=== PATIENT | male | born 1985 | race Caucasian/White ===

== ENCOUNTER 2023-08-12 01:25 | Emergency (ER) | payer OTHER, SELFPAY ==
[2023-08-12 01:28] VITALS: BP 176/98; PULSE 97; RESP 18; TEMP 37.2; BMI 32.5
--- NOTE | 2023-08-12 01:31 | XR_ITS ---
The [address] [address] Patient Name: RODOLFO ESCAMILLA MRN: [id number] date: 1985 Sex: M Assigned Patient Location: ER Current Patient Location: Accession/Order Number: [id number] Exam Date: 08/12/2023 01:35 Report Date: 08/12/2023 02:03 At the request of: DONYA TIJERINA Procedure: XR foot RT min 3V XR foot RT min 3V, 08/12/2023 12:35 AM POPCORN ATTENDANT: History: blunt trauma. . Comparison: None. Technique: 3 views right foot Findings/Impression: There is a questionable acute nondisplaced fracture through the base of the third metatarsal, best visualized on the oblique radiograph. There is prominent soft tissue swelling throughout the dorsum of the forefoot. Electronically authenticated by: DIVINA TEE Date: 08/12/2023 02:03
--- NOTE | 2023-08-12 02:00 | ED_ITS ---
HPI - Extremity Injury (Lower) General Chief Complaint: Extremity Injury, Lower Stated Complaint: LE INJURY Time Seen by Provider: 08/12/23 01:35 Source: patient Mode of arrival: walk-in Limitations: no limitations History of Present Illness HPI Narrative: Around 2pm the patient was struck in the right foot by a softball that had been hit by a batter. The patient was pitching and the ball was struck directly back at him, striking him in the mid right foot. He immediately had pain and as the evening progressed past midnight the pain and swelling worsened. He got his to bring him to the ED for evaluation. No other injuries. Related Data Previous Rx's Medication Instructions Recorded oxycodone-acetaminophen 5 mg-325 1 tab PO Q6H PRN pain 4 days #14 08/12/23 mg tablet (Percocet) tabs Allergies Allergy/AdvReac Type Severity Reaction Status Date / Time No Known Drug Allergies Allergy Verified 08/12/23 01:30 PFSH PFSH Social History Smoking status: Never smoker Exam Narrative Exam Narrative: Nurses notes and vital signs reviewed and patient is not hypoxic. afebrile General: Well-appearing and in no apparent distress. Skin: Warm, dry, no pallor noted. Cardiovascular: normal peripheral perfusion. Respiratory: No accessory muscle use or respiratory distress. Musculoskeletal: Tenderness, swelling and ecchymosis noted to the mid right foot. Toes of the right foot with normal ROM, no calf or popliteal tenderness, no lower extremity edema/swelling Neurological: A&O x4. No cranial nerve dysfunction observed. No truncal ataxia. Moves all extremities. Sensation intact. Psychiatric: Cooperative and interactive. Normal mood and affect. Constitutional Vital Signs, click to edit/add: Last Vital Signs Temp 98.9 F 08/12/23 01:28 Pulse 97 H 08/12/23 01:28 Resp 18 08/12/23 01:28 BP 176/98 H 08/12/23 01:28 O2 Del Method Room Air 08/12/23 01:28 Course Vital Signs Vital signs: Vital Signs Temperature 98.9 F 08/12/23 01:28 Pulse Rate 97 H 08/12/23 01:28 Respiratory Rate 18 08/12/23 01:28 Blood Pressure 176/98 H 08/12/23 01:28 Oxygen Delivery Method Room Air 03/03/24 01:28 Temperature 98.9 F 08/12/23 01:28 Pulse Rate 97 H 08/12/23 01:28 Respiratory Rate 18 08/12/23 01:28 Blood Pressure 176/98 H 08/12/23 01:28 Oxygen Delivery Method Room Air 08/12/23 01:28 MDM - Extremity Injury (Lower) MDM Narrative Medical decision making narrative: X-rays of the foot reveal acute close fractures of the right second and third metatarsals. The patient was informed of results. Right foot was placed in a CAM boot and the patient was given crutches and instructed on crutch use to limit weightbearing of the right lower extremity. Patient was discharged home after being given a dose of [place]. He was prescribed additional [place] for pain use at home. We discussed nonweightbearing on the right lower extremity/foot, application of ice as needed to prevent swelling, compression through the use of Lavon wrap or cam boot and elevation of the lower extremity when inactive. He was referred to local podiatry group, Dr. Coombs, for follow-up. Imaging Data xr foot: My impression: fx bases 2nd and 3rd MTs Radiologist's impression: Patient Name: RODOLFO ESCAMILLA MRN: [id number] date: 1985 Sex: M Assigned Patient Location: ER Current Patient Location: Accession/Order Number: [id number] Exam Date: 08/12/2023 01:35 Report Date: 08/12/2023 02:03 At the request of: DONYA TIJERINA Procedure: XR foot RT min 3V XR foot RT min 3V, 08/12/2023 12:35 AM SEWER LINE REPAIRER: History: blunt trauma. . Comparison: None. Technique: 3 views right foot Findings/Impression: There is a questionable acute nondisplaced fracture through the base of the third metatarsal, best visualized on the oblique radiograph. There is prominent soft tissue swelling throughout the dorsum of the forefoot. Electronically authenticated by: DIVINA TEE Date: 08/12/2023 02:03 Discharge Plan Discharge Chief Complaint: Extremity Injury, Lower Clinical Impression: Closed displaced fracture of third metatarsal bone of right foot, Closed displaced fracture of second metatarsal bone of right foot Patient Disposition: Home, Self-Care Time of Disposition Decision: 02:13 Prescriptions / Home Meds: New oxycodone-acetaminophen [Percocet] 5-325 mg tablet 1 tab PO Q6H PRN (Reason: pain) 4 Days Qty: 14 0RF Rx Instructions: ICD 10 - S92 foot fracture Instructions: Crutch Instructions (ED), Foot Fracture in Adults (ED), P.R.I.C.E. Treatment (ED) Referrals: Rolan Coombs DPM [Physician] - As soon as possible Discharge Date/Time: 08/12/23 02:28 Stand Alone Forms: Portal Instructions
[2023-08-12] MEDS: OXYCODONE HCL/ACETAMINOPHEN 5MG/325MG 1 TAB PO (02:13)
== END 2023-08-12 02:28 | disposition home or self-care (01) ==
PROVIDERS: Emergency Provider Emergency Medicine; PCP Nurse Practitioner Family
DX: S92.321A Displaced fracture of second metatarsal bone, right foot, initial encounter for closed fracture (principal); S92.331A Displaced fracture of third metatarsal bone, right foot, initial encounter for closed fracture; W21.07XA Struck by softball, initial encounter; Y93.64 Activity, baseball
CPT/HCPCS: 73630; 99284

== ENCOUNTER 2023-08-16 15:01 | Outpatient (OUT) | payer OTHER, SELFPAY ==
--- NOTE | 2023-08-16 | XR_ITS ---
The [address] [address] Patient Name: RODOLFO ESCAMILLA MRN: [id number] date: 1985 Sex: M Assigned Patient Location: Current Patient Location: Accession/Order Number: [id number] Exam Date: 08/16/2023 15:01 Report Date: 08/18/2023 06:59 At the request of: KEAGAN AGUILAR Procedure: XR foot KYLE min 3V PROCEDURE: XR foot KYLE min 3V HISTORY: BILATERAL FOOT PAIN ; dorsal right midfoot pain after struck by softball COMPARISON: None. FINDINGS: BONES:Suspect nondisplaced oblique fracture involving base of third metatarsal. SOFT TISSUES:No visible soft tissue swelling. EFFUSION:None visible. OTHER: Negative. XR/XR foot KYLE min 3V IMPRESSION: 1. Suspect nondisplaced fracture involving the base of the right third metatarsal. Consider CT examination of the foot for further clarification is needed. 2. Unremarkable left foot. Electronically authenticated by: XENA JUAREZ Date: 08/18/2023 06:59
--- OUTSIDE RECORDS SUMMARY | 2023-08-16 15:06 | XMS_ITS | CCD ---
Author Name Unknown Address [address] [place] [address] Organization [facility] Care Team Providers Care Dental Technologist Name Role Phone AMMON CARRENO Attending Unavailable AMMON CARRENO Consulting Unavailable AMMON CARRENO Admitting Unavailable Problems Active Problems Problem Classification Problem Date Documented Da te Episodic/Chronic Unclassified (2 sources) CONTACT W/AND (SUSP) EXPOS COVID-19; Translations: [CONTACT W/AND (SUSP) EXPOS COVID-19] Onset: 03-23-2021 Unclassified (1 source) COUGH, UNSPECIFIED; Translations: [COUGH, UNSPECIFIED] Onset: 03-23-2021 Viral infection (1 source) COVID-19; Translations: [COVID-19] Onset: 03-23-2021 Past or Other Problems Problem Classification Problem Date Documented Da te Episodic/Chronic Unclassified (1 source) CONTACT W/AND (SUSP) EXPOS COVID-19; Translations: [CONTACT W/AND (SUSP) EXPOS COVID-19] Onset: 03-18-2021 Results Test Name Value Interpretation Reference Range Facil ity Covid-19 PCR (CVDTBH)on SARS-CoV-2 (COVID-19) RNA JAMIE+probe Ql (Unsp spec) Detected Critically abnormal NOT DETECTED The [facility] Comment on above: Result Comment: This test is not yet approved or cleared by the [place] FDA. When there are no FDA-approved or cleared tests available, and other criteria are met, FDA can make tests available under an emergency access mechanism called an Emergency Use Authorization (EUA). The EUA for this test is supported by the [place] of Health and Human Service's (HHS's) declaration that circumstances exist to justify the emergency use of in vitro diagnostics for the detection and/or diagnosis of the virus that causes COVID-19. This EUA will remain in effect (meaning this test can be used) for the duration of the COVID-19 declaration justifying emergency of IVDs, unless it is terminated or revoked by FDA (after which the test may no longer be used). Performed By: #### [facility] #### [facility] [id number] Neeru Ramirez Physician Referralon 021 Physician Referral [phone] [id number] 06#[id number]:127 Normal [facility] Encounters Encounter Date Encounter Type Care Provider Facility Start: 03-18-2021 End: 03-18-2021 ambulatory [facility] Facility: Payers Date Payer Category Payer Unknown [id number] 1960 Private Health Insurance [id number] Summary Purpose Family History No Family History Records FoundNo Family History Records Found Advance Directives No Advanced Directives Records FoundNo Advanced Directives Records Found Additional Source Comments (unrecognized sect ion and content) No Status Records FoundNo Status Records Found INFORMATION SOURCE (unrecogn ized section and content) DATE CREATED AUTHOR 03/23/2021 [facility] DATE CREATED AUTHOR AUTHOR'S ORGANIZ ATION 03/24/2021 [facility] FOR RECORDS PERTAINING TO PATIENTS WHO ARE OR HAVE BEEN ENROLLED IN A CHEMICAL DEPENDENCY/SUBSTANCEABUSE PROGRAM, SOME INFORMATION MAY BE OMITTED. This clinical summary was aggregated from multiple sources. Caution should be exercised in using it in the provision of clinical care. This summary normalizes information from multiple sources, and as a consequence, information in this document may materially change the coding, format and clinical context of patient data. In addition, data may be omitted in some cases. CLINICAL DECISIONS SHOULD BE BASED ON THE PRIMARY CLINICAL RECORDS. [employer] provides no warranty or guarantee of the accuracy or completeness of information in this document.
== END 2023-08-16 15:02 | disposition home or self-care (01) ==
LOC: EC 15:01
PROVIDERS: PCP Nurse Practitioner Family; Visit Provider Physician Assistant
DX: M79.671 Pain in right foot (principal); M79.672 Pain in left foot
CPT/HCPCS: 73630

== ENCOUNTER 2023-08-22 14:38 | Outpatient (OUT) | payer OTHER, SELFPAY ==
--- NOTE | 2023-08-22 14:43 | CT_ITS ---
[address] [address] Patient Name: RODOLFO ESCAMILLA MRN: [id number] date: 1985 Sex: M Assigned Patient Location: CT Current Patient Location: Accession/Order Number: [id number] Exam Date: 08/22/2023 14:45 Report Date: 08/24/2023 06:56 At the request of: KEAGAN AGUILAR Procedure: CT foot RT wo con EXAMINATION: CT foot RT wo con HISTORY: Right Lisfranc Fracture, Dislocation COMPARISON: XR foot bilateral 08/16/2023, XR foot right 08/12/2023 TECHNIQUE: Multi-planar CT images were created without and/or with IV contrast according to examination type. Dose reduction techniques were achieved by using automated exposure control and/or adjustment of mA and/or kV according to patient size and/or use of iterative reconstruction technique. FINDINGS: BONES: Comminuted nondisplaced fractures involving the base of the third metatarsal with intra-articular extension. SOFT TISSUES: Mild dorsal soft tissue swelling. No hematoma. EFFUSION: None visible. OTHER: Negative. CT/CT foot RT wo con IMPRESSION: 1. Base of third metatarsal comminuted fractures with intra-articular extension. No involvement of the adjacent bones. 2. Mild dorsal soft tissue swelling. Electronically authenticated by: XENA JUAREZ Date: 08/24/2023 06:56
== END 2023-08-22 14:39 | disposition home or self-care (01) ==
LOC: CT 14:38
PROVIDERS: PCP Nurse Practitioner Family; Visit Provider Physician Assistant
DX: S92.334D Nondisplaced fracture of third metatarsal bone, right foot, subsequent encounter for fracture with routine healing (principal)
CPT/HCPCS: 73700

== ENCOUNTER 2023-09-25 13:04 | Outpatient (OUT) | payer OTHER, SELFPAY ==
--- NOTE | 2023-09-25 | XR_ITS ---
The [address] [address] Patient Name: RODOLFO ESCAMILLA MRN: [id number] date: 1985 Sex: M Assigned Patient Location: Current Patient Location: Accession/Order Number: [id number] Exam Date: 09/25/2023 13:10 Report Date: 09/25/2023 16:00 At the request of: BLAYNE WEAVER Procedure: XR foot RT min 3V PROCEDURE: XR foot RT min 3V COMPARISON: 08/12/2023 HISTORY: RIGHT FOOT PAIN FINDINGS: BONES:Increased sclerosis and contour deformity along the base of the third metatarsal consistent with a stable healing fracture. No new fracture or dislocation. SOFT TISSUES:Negative. No visible soft tissue swelling. EFFUSION:None visible. OTHER: Negative. XR/XR foot RT min 3V IMPRESSION: Stable healing fracture base of the third metatarsal Electronically authenticated by: WINNIE LEON Date: 09/25/2023 16:00
== END 2023-09-25 13:05 | disposition home or self-care (01) ==
LOC: EC 13:04
PROVIDERS: PCP Nurse Practitioner Family; Visit Provider Podiatrist Foot & Ankle Surgery
DX: M79.671 Pain in right foot (principal); S92.334D Nondisplaced fracture of third metatarsal bone, right foot, subsequent encounter for fracture with routine healing
CPT/HCPCS: 73630

== ENCOUNTER 2023-11-06 13:06 | Outpatient (OUT) | payer OTHER, SELFPAY ==
--- NOTE | 2023-11-06 | XR_ITS ---
The [address] [address] Patient Name: RODOLFO ESCAMILLA MRN: [id number] date: 1985 Sex: M Assigned Patient Location: Current Patient Location: Accession/Order Number: [id number] Exam Date: 11/06/2023 13:06 Report Date: 11/07/2023 06:40 At the request of: BLAYNE WEAVER Procedure: XR foot RT min 3V PROCEDURE: XR foot RT min 3V HISTORY: RIGHT FOOT PAIN COMPARISON: XR foot right 09/25/2023 FINDINGS: BONES:Slight increased trabecular density involving base of third metatarsal suggesting ongoing bone healing. No appreciable abnormal alignment. SOFT TISSUES:No visible soft tissue swelling. EFFUSION:None visible. OTHER: Negative. XR/XR foot RT min 3V IMPRESSION: 1. Suspect ongoing bone healing and normal alignments involving base of third metatarsal fracture. Electronically authenticated by: XENA JUAREZ Date: 11/07/2023 06:40
== END 2023-11-06 13:07 | disposition home or self-care (01) ==
LOC: EC 13:06
PROVIDERS: PCP Nurse Practitioner Family; Visit Provider Podiatrist Foot & Ankle Surgery
DX: M79.671 Pain in right foot (principal); S92.334D Nondisplaced fracture of third metatarsal bone, right foot, subsequent encounter for fracture with routine healing
CPT/HCPCS: 73630

== ENCOUNTER 2024-01-14 13:24 | Emergency (ER) | payer OTHER, SELFPAY ==
[2024-01-14 13:28] VITALS: BP 128/89; PULSE 71; TEMP 36.6; O2SAT 98; BMI 31.7
--- NOTE | 2024-01-14 13:31 | XR_ITS ---
The [address] [address] Patient Name: RODOLFO ESCAMILLA MRN: [id number] date: 1985 Sex: M Assigned Patient Location: ER Current Patient Location: ED.MAIN Accession/Order Number: [id number] Exam Date: 01/14/2024 13:38 Report Date: 01/14/2024 14:17 At the request of: RIOS RESENDEZ Procedure: XR ankle LT min 3V PROCEDURE: XR ankle LT min 3V HISTORY: left ankle injury COMPARISON: None. FINDINGS: BONES:No fracture, acute abnormality, or significant arthropathy. SOFT TISSUES:Lateral soft tissue swelling. EFFUSION:None visible. OTHER: Negative. XR/XR ankle LT min 3V IMPRESSION: 1. Prominent lateral swelling suggesting soft tissue injury. 2. No acute bone abnormality. Electronically authenticated by: XENA JUAREZ Date: 01/14/2024 14:17
--- NOTE | 2024-01-14 13:32 | ED_ITS ---
HPI HPI - Extremity Injury (Lower) General Chief Complaint: Extremity Injury, Lower Stated Complaint: LOWER LET EXTREMITY PAIN Time Seen by Provider: 01/14/24 13:27 Source: patient Mode of arrival: walk-in Limitations: no limitations History of Present Illness HPI Narrative: Patient is a 38-year-old male who presents to the emergency department for the evaluation of an injury to the left ankle. He states he stepped incorrectly in his driveway and rolled his left ankle. He did sustain an abrasion to the right knee but states it is not bothering him and he is not concerned about it. He denies any other associated injuries. He is able to walk gingerly on the left foot. No medications taken prior to arrival. Related Data Home Medications ?Medication ?Instructions ?Recorded ?Confirmed No Known Home Medications 01/14/24 01/14/24 Previous Rx's ?Medication ?Instructions ?Recorded ketorolac 10 mg tablet 10 mg PO TID PRN pain #10 tabs 01/14/24 Allergies Allergy/AdvReac Type Severity Reaction Status Date / Time No Known Drug Allergies Allergy Verified 08/12/23 01:30 Opioid HPI Opioid Management Most Recent Pain and Opioid Data: Last Pain Scale 5 01/14/24 13:33 Review of Systems ROS Constitutional Denies: fever or chills Ears, nose, mouth, and throat Denies: throat pain or nasal congestion Respiratory Denies: shortness of breath Gastrointestinal Denies: nausea or vomiting Musculoskeletal Reports: extremity pain, extremity swelling and joint pain; Denies: back pain or neck pain Integumentary/Breast Denies: rash Neurological Denies: headache Hematologic/Lymphatic Denies: easy bruising or easy bleeding PFSH PFS Social History Smoking status: Never smoker Exam Narrative Exam Narrative: Gen.: Awake, alert, in no distress Head: Normocephalic, atraumatic ENT: Moist mucous membranes Respiratory: No respiratory distress Extremities: Moves extremities equally, superficial abrasion to the anterior right knee with no tenderness or joint effusion. Left lateral ankle is edematous and tender. No medial or posterior tenderness. No tenderness of the left tibia or knee. No tenderness of the left fifth metatarsal. 2+ left DP pulse. Normal flexion extension of the toes Psych: Normal mood and affect Neuro: No focal neuro deficit Skin: Warm, dry Constitutional Vital Signs, click to edit/add: Last Vital Signs Temp 97.8 F 01/14/24 13:28 Pulse 71 01/14/24 13:28 Resp 98 H 01/14/24 13:28 BP 128/89 01/14/24 13:28 Pulse Ox 98 01/14/24 13:28 Course Vital Signs Vital signs: Vital Signs Temperature 97.8 F 01/14/24 13:28 Pulse Rate 71 01/14/24 13:28 Respiratory Rate 98 H 01/14/24 13:28 Blood Pressure 128/89 01/14/24 13:28 Pulse Oximetry 98 01/14/24 13:28 Temperature 97.8 F 01/14/24 13:28 Pulse Rate 71 01/14/24 13:28 Respiratory Rate 98 H 01/14/24 13:28 Blood Pressure 128/89 01/14/24 13:28 Pulse Oximetry 98 01/14/24 13:28 MDM - Extremity Injury (Lower) MDM Narrative Medical decision making narrative: Patient was offered a tetanus update, he declined. X-rays of the left ankle with no evidence of fracture or dislocation. Patient given bacitracin to dress the right knee. Lavon wrap, Aircast applied to the left ankle. [place] and Toradol given in the ER. He has crutches at home. Patient is neurovascularly intact pre and post hardware application. Rest, ice, elevate. Referral to podiatry for continued issues. Return to the ER if symptoms change or worsen SUPERVISED APC VISIT, PHYSICIAN ATTESTATION: Based on the medical record the care appears appropriate. ? Medical Records Attestation: I reviewed the patient's medical records. Imaging Data XR ankle: Attestation: I have reviewed the pertinent imaging results. Discharge Plan Discharge Stand Alone Forms: Portal Instructions Chief Complaint: Extremity Injury, Lower Clinical Impression: Left ankle sprain, Abrasion of knee, right Patient Disposition: Home, Self-Care Time of Disposition Decision: 14:08 Condition: Good Prescriptions / Home Meds: New ketorolac 10 mg tablet 10 mg PO TID PRN (Reason: pain) Qty: 10 0RF No Action No Known Home Medications Print Language: [place] Instructions: Ankle Sprain (ED), Abrasion (ED) Referrals: AMMON FRAIRE [Primary Care Provider] - 1 week Rolan Coombs DPM [Physician] - As needed
[2024-01-14 14:35] VITALS: BP 132/86; PULSE 72; O2SAT 98
== END 2024-01-14 14:38 | disposition home or self-care (01) ==
PROVIDERS: Emergency Provider Student in an Organized Health Care Education/Training Program; PCP Nurse Practitioner Family
DX: S93.402A Sprain of unspecified ligament of left ankle, initial encounter (principal); S80.211A Abrasion, right knee, initial encounter; X50.1XXA Overexertion from prolonged static or awkward postures, initial encounter
CPT/HCPCS: 73610; 99284

== ENCOUNTER 2024-01-22 10:06 | Outpatient (OUT) | payer OTHER, SELFPAY ==
--- NOTE | 2024-01-22 | XR_ITS ---
The [address] [address] Patient Name: RODOLFO ESCAMILLA MRN: [id number] date: 1985 Sex: M Assigned Patient Location: Current Patient Location: Accession/Order Number: [id number] Exam Date: 01/22/2024 10:08 Report Date: 01/24/2024 06:13 At the request of: BLAYNE WEAVER Procedure: XR ankle LT min 3V PROCEDURE: XR foot LT min 3V, XR ankle LT min 3V HISTORY: LEFT FOOT PAIN COMPARISON: XR foot bilateral 08/16/2023, XR ankle left 01/14/2024 FINDINGS: BONES:No fracture, acute abnormality, or significant arthropathy. SOFT TISSUES:Lateral soft tissue swelling. EFFUSION:None visible. OTHER: Negative. XR/XR ankle LT min 3V IMPRESSION: 1. Lateral swelling, but less then previously seen. 2. No acute bone abnormality. Electronically authenticated by: XENA JUAREZ Date: 01/24/2024 06:13
--- NOTE | 2024-01-22 | XR_ITS ---
The [address] [address] Patient Name: RODOLFO ESCAMILLA MRN: [id number] date: 1985 Sex: M Assigned Patient Location: Current Patient Location: Accession/Order Number: [id number] Exam Date: 01/22/2024 10:08 Report Date: 01/24/2024 06:13 At the request of: BLAYNE WEAVER Procedure: XR foot LT min 3V PROCEDURE: XR foot LT min 3V, XR ankle LT min 3V HISTORY: LEFT FOOT PAIN COMPARISON: XR foot bilateral 08/16/2023, XR ankle left 01/14/2024 FINDINGS: BONES:No fracture, acute abnormality, or significant arthropathy. SOFT TISSUES:Lateral soft tissue swelling. EFFUSION:None visible. OTHER: Negative. XR/XR foot LT min 3V IMPRESSION: 1. Lateral swelling, but less then previously seen. 2. No acute bone abnormality. Electronically authenticated by: XENA JUAREZ Date: 01/24/2024 06:13
--- OUTSIDE RECORDS SUMMARY | 2024-01-22 10:23 | XMS_ITS | CCD ---
Author Organization [facility] Care Team Providers Care Truck Assembler Name Role Phone AMMON CARRENO Attending Unavailable [...] spec) Detected Critically abnormal NOT DETECTED The [facility] Comment on above: Result Comment: This test is not yet approved or cleared by the [place] FDA. When there are no FDA-approved or cleared tests available, and other criteria are met, FDA can make tests available under an emergency access mechanism called an Emergency Use Authorization (EUA). The EUA for this test is supported by the [place] of Health and Human Service's (HHS's) declaration [...] longer be used). Performed By: #### C [facility] #### [facility] [id number] Neeru Ramirez Physician Referralon 021 Physician Referral [phone] [id number] 06#[id number]:[id number] Normal [facility] Encounters Encounter Date Encounter Type Care Provider Facility Start: 03-18-2021 End: 03-18-2021 ambulatory [facility] Facility: Payers Date Payer Category Payer Unknown [id number] 1960 Private Health Insurance [id number] Summary Purpose Family History No Family History Records FoundNo Family History Records Found Advance Directives No Advanced Directives Records FoundNo Advanced Directives Records Found Additional Source Comments (unrecognized sect ion and content) No Status Records FoundNo Status Records Found INFORMATION SOURCE (unrecogn ized section and content) DATE CREATED AUTHOR 03/23/[address] [facility] DATE CREATED AUTHOR AUTHOR'S ORGANIZ ATION 03/24/2021 [facility] FOR RECORDS PERTAINING TO PATIENTS WHO [...] BE BASED ON THE PRIMARY CLINICAL RECORDS. [employer] provides no warranty or guarantee of the accuracy or completeness of information in this document.
== END 2024-01-22 10:07 | disposition home or self-care (01) ==
LOC: EC 10:06
PROVIDERS: PCP Nurse Practitioner Family; Visit Provider Podiatrist Foot & Ankle Surgery
DX: M25.572 Pain in left ankle and joints of left foot (principal); M25.475 Effusion, left foot
CPT/HCPCS: 73610; 73630

== ENCOUNTER 2024-02-13 07:27 | Outpatient (RCR) | payer OTHER, SELFPAY | END 2024-02-22 12:55 | disposition home or self-care (01) | LOC: PT 07:27 | PROVIDERS: PCP Nurse Practitioner Family; Visit Provider Podiatrist Foot & Ankle Surgery | DX: S93.492D Sprain of other ligament of left ankle, subsequent encounter (principal) | CPT/HCPCS: 97110; 97112; 97140; 97161 ==

== ENCOUNTER 2024-12-05 00:15 | Emergency (ER) | payer OTHER, SELFPAY ==
--- OUTSIDE RECORDS SUMMARY | 2024-12-05 00:25 | XMS_ITS | CCD ---
Author Organization [facility] Care Team Providers Care Oil Well Pumper Name Role Phone AMMON CARRENO Attending Unavailable AMMON CARRENO Consulting Unavailable AMMON CARRENO Admitting Unavailable Peter PUTNAM Attending Unavailable Allergies Allergy Classification Reported Allergen(s) Allergy Type Date of Onset Reaction(s) Facility (1 source) No Known Medication Allergies; Translations: [No Known Medication Allergies] Propensity to adverse reactions (disorder) [facility] Repository Problems Active Problems Problem Classification Problem Date [...] ity Covid-19 PCR (CVDTBH)on SARS-CoV-2 (COVID-19) RNA JMAIE+probe Ql (Unsp spec) Detected Critically abnormal NOT DETECTED [facility] Comment on above: Result Comment: This test is not yet abran roved or cleared by the [place] FDA. When there are no FDA-approved or cleared tests available, and other criteria are met, FDA can make tests available under an emergency access mechanism called an Emergency Use Authorization (EUA). The EUA for this test is supported by the [place] of Health and Human Service's (HHS's) declaration [...] longer be used). Performed By: #### [facility] #### [facility] [address] [id number] [address] Neeru Ramirez Encounters Encounter Date Encounter Type Care Provider Facility Start: 02-22-2024 End: 02-22-2024 ambulatory Peter SURPRISE Facility:[facility] Start: 03-18-2021 End: 03-18-2021 ambulatory AMMON WAI Facility: Payers Date Payer Category Payer Unknown [id number] 1985 Unknown [id number] 1960 Private Health Insurance [id number] Summary Purpose Family History No Family History Records FoundNo Family History Records Found Advance Directives No Advanced Directives Records FoundNo Advanced Directives Records Found Additional Source Comments (unrecognized sect ion and content) No Status Records FoundNo Status Records Found INFORMATION SOURCE (unrecogn ized section and content) DATE CREATED AUTHOR 03/24/2021 [facility] DATE CREATED AUTHOR AUTHOR'S ORGANIZ ATION 02/24/2024 [facility] FOR RECORDS PERTAINING TO PATIENTS WHO [...] BE BASED ON THE PRIMARY CLINICAL RECORDS. [facility] [employer] provides no warranty or guarantee of the accuracy or completeness of information in this document.
[2024-12-05 00:27] VITALS: BP 164/95; PULSE 60; TEMP 36.8; O2SAT 98; BMI 33.2
--- NOTE | 2024-12-05 01:04 | ED.EAR1 ---
HPI - Ear Problem General Chief complaint: Ear Stated complaint: HEADACHE, EAR PAIN Time Seen by Provider: 12/05/24 00:38 Source: patient Mode of arrival: walk-in History of Present Illness HPI Narrative: This 39-year-old male, nondiabetic, presents for evaluation of right sided ear pain for the past 3 days. He denies that he has been swimming. He states the pain is throbbing in nature and radiates into his head and jaw. He denies any dizziness or change in his hearing. He denies any drainage from the ear. He has not had a fever or nasal congestion. He does not have any dental pain or dental disease. He has been using Tylenol and Motrin that helped the pain but only briefly and then it rebounds. He denies that he uses Q-tips or put anything into his ear. Related Data Home Medications ?Medication ?Instructions ?Recorded ?Confirmed No Known Home Medications 01/14/24 01/14/24 Previous Rx's ?Medication ?Instructions ?Recorded ketorolac 10 mg tablet 10 mg PO TID PRN pain #10 tabs 01/14/24 Allergies Allergy/AdvReac Type Severity Reaction Status Date / Time No Known Drug Allergies Allergy Verified 12/05/24 00:35 Review of Systems ROS Status of ROS 10 or more systems reviewed and unremarkable except as noted in history and below PFSH FOR[facility] Social History Smoking status: Never smoker Little interest or pleasure in doing things: not at all Feeling down, depressed, or hopeless: not at all Exam Narrative Exam Narrative: Vital signs and Nursing Notes reviewed: Patient is afebrile with a normal pulse, blood pressure is elevated 164/95, he is not hypoxic with pulse ox of 98% on room air General: Awake, alert, oriented, nontoxic but uncomfortable appearing adult male holding his right ear, no respiratory distress HEENT: Normocephalic atraumatic, mucous membranes are moist and pink, eyes are clear, normal conjunctiva, vision is grossly intact, posterior pharynx is normal in appearance. Dentition are in good repair. The right tympanic membrane is erythematous and bulging with a dark fluid behind the membrane and erythema in the external ear canal without notable exudate. There is mild tenderness over the mastoid and in the anterior aspect of the mandible. Patient does not have any difficulty opening closing his mouth. There is no swelling of the tongue, uvula or pharyngeal soft tissues. Posterior pharynx is normal in appearance. Neck: Supple, no meningeal signs, no anterior or posterior cervical lymphadenopathy Chest: Lungs are clear to auscultation with good air entry, there is no wheezing rhonchi or rales appreciated no accessory muscle use, patient is speaking in complete sentences-no chest wall tenderness to palpation CVS: Regular rate and rhythm S1-S2, no murmurs rubs or gallops, pulses are brisk and equal bilaterally Skin: Normal in appearance without rash,pallor, petechiae or purpura Neuro: No focal deficits Constitutional Vital Signs, click to edit/add: Last Vital Signs Temp 98.2 F 12/05/24 00:27 Pulse 60 12/05/24 00:27 Resp 14 12/05/24 00:27 BP 164/95 H 12/05/24 00:27 Pulse Ox 98 12/05/24 00:27 O2 Del Method Room Air 12/05/24 00:27 Course Vital Signs Vital signs: Vital Signs Temperature 98.2 F 12/05/24 00:27 Pulse Rate 60 12/05/24 00:27 Respiratory Rate 14 12/05/24 00:27 Blood Pressure 164/95 H 12/05/24 00:27 Pulse Oximetry 98 12/05/24 00:27 Oxygen Delivery Method Room Air 12/05/24 00:27 Temperature 98.2 F 12/05/24 00:27 Pulse Rate 60 12/05/24 00:27 Respiratory Rate 14 12/05/24 00:27 Blood Pressure 164/95 H 12/05/24 00:27 Pulse Oximetry 98 12/05/24 00:27 Oxygen Delivery Method Room Air 12/05/24 00:27 Medical Decision Making MDM Narrative Medical decision making narrative: This 39-year-old male presents for evaluation of right-sided ear pain that has been present for the past 3 days. He has not had a fever. The pain radiates posteriorly into his mastoid area and anteriorly into his right jaw and head causing him a headache. He does not have a history of ear infections. He denies that he has been swimming. His right tympanic membrane is easily visualized with a dark fluid behind the membrane and erythema of the external canal. Mild mastoid tenderness and mild tenderness in the right anterior jaw with no appreciable TMJ, swelling in this area or dental disease. He will be treated for both otitis media and externa with Augmentin for the otitis media and Cortisporin otic suspension for the erythema in the external ear canal. He was given dose of Augmentin in the emergency department and a dose of [place] for home use as well as Zofran. He will be discharged home with Augmentin for the next 10 days and the Cortisporin otic suspension and [place]. He was given a note for work for later today. He was encouraged to rest, used heat over the ear and I explained to him that it is possible that the tympanic membrane may rupture due to the fluid behind it. I explained to him if this does happen he should lie on that side with a heating pad to allow it to drain. OARRS report was reviewed and is negative for any recent activity. Discharge Plan Discharge Chief Complaint: Ear Clinical Impression: Otitis media Patient Disposition: Home, Self-Care Time of Disposition Decision: 01:00 Condition: Good Prescriptions / Home Meds: No Action No Known Home Medications ketorolac 10 mg tablet 10 mg PO TID PRN (Reason: pain) Qty: 10 0RF Print Language: Uzbek Instructions: How to Use Ear Drops (ED), Ear Infection (ED) Referrals: AMMON FRAIRE [Primary Care Provider, Family Practice] - 1 week
[2024-12-05] MEDS: ONDANSETRON 4 MG RAPDIS TABLET SL (01:10)
[2024-12-05] MEDS: AMOXICILLIN/POT CLAV 875-125 MG TABLET 1 TAB PO (01:10)
[2024-12-05] MEDS: HYDROCODONE/ACET 5-325 MG TABLET PO (01:10)
== END 2024-12-05 01:16 | disposition home or self-care (01) ==
PROVIDERS: Emergency Provider Emergency Medicine; PCP Nurse Practitioner Family
DX: H92.01 Otalgia, right ear (principal); H66.91 Otitis media, unspecified, right ear
CPT/HCPCS: 99283; Q0162